=== PATIENT | female | born 1960 | race Two or more races ===

== ENCOUNTER 2016-06-22 17:18 | Emergency (ER) | payer OTHER ==
[2016-06-22 17:40] VITALS: TEMP 98; BMI 30.3
--- NOTE | 2016-06-22 18:13 | EDPRACDOC ---
- General Information Chief Complaint: Chest Pain Stated Complaint: CHEST PAIN Time Seen by Provider: 06/22/16 17:58 Information Source: Patient, Family Mode of Arrival: Car Home Medications: Home Medications Cyanocobalamin (Vitamin B-12) [Cyanocobalamin Injection] 1,000 mcg IJ QMONTH 01/09 Levothyroxine Sodium [Levoxyl] 112 mcg PO DAILY 08/04/12 Acetaminophen Ex Str Tablet [Tylenol Extra Strength *] 1,000 mg PO Q6H PRN 05/30 Albuterol Sulfate 2.5 mg IH Q6H PRN 05/30/13 Albuterol Sulfate [Proair Hfa] 1 - 2 puff INH Q4H PRN 05/30/13 Fluticasone Propionate [Flonase] 1 spray RIMA DAILY 05/30/13 Multivitamin [Multiple Vitamins] 1 tab PO DAILY 05/30/13 Meclizine HCl [Antivert] 25 mg PO Q8H PRN 06/22/16 Mometasone/Formoterol [Dulera 100 Mcg/5 Mcg Inhaler] 13 gm IH BID 06/22/16 Allergies/Adverse Reactions: Allergies Allergy/AdvReac Type Severity Reaction Status Date / Time codeine Allergy Unknown Nausea/Vomi Verified 06/22/16 17:40 ting - History of Present Illness Onset: TODAY HPI: C/o episodes of left side chest tightness with SOB x 1.5 weeks. Had echo done last week = mitral and tricuspid regurge. Stress test pending appt with cardiology. Pt had CP pain today with SOB and pcp sent here here to ED. Pain is random onset, described as burning, and radiates to back and bilateral neck. Denies fever, cough, sore throat, N/V/D, chnages in urine or BM. Med hx = asthma , thyroid (both hyper and hypo). Neg fam hx of cardiac dz. Surgical hx = gregory. Chest Pain Location: Reports: Left Chest Pain Radiation: Reports: Neck (bilat) Symptoms Occur: Reports: Suddenly, At Rest Cardiac Risk Factors: Reports: None Cardiac History of: Reports: Valve Disease (mitral and tricuspid regurge) PE Risk Factors: Reports: None Medications within 24 Hours: Reports: None Prehospital Care: Reports: None Pain Came On: Reports: Suddenly Pain Status: Present Now Pain Description: Reports: Burning Pain Severity: Moderate Pain Worsens With: Reports: Breathing Pain Improves With: Reports: Rest Associated Signs and Symptoms: Reports: SOB ED Past Medical History - History Reviewed Yes Nurses notes reviewed and agree except as marked - Patient Medical History Respiratory History: Reports: Asthma GI/ History: Denies: Urinary Tract Infection Psychological History: Reports: Anxiety. Denies: Depression, Substance Use Disorder Systemic History: Reports: Hypothyroidism (Radiation tx for thyroid several yr ago). Denies: Cancer Surgical History: Reports: Cholecystectomy. Denies: Hysterectomy Date of Last Radiation Treatment: Several yr - Family Medical History Reports: Diabetes (Mother) - Social Medical History Smoking Status: Never smoker Social History: Denies: Substance Use Disorder EDM Review of Systems - Review of Systems ROS Negative Except as Marked: Yes All systems reviewed and were negative except as marked Respiratory: Shortness of Breath Cardiovascular: Chest Pain - Physical Exam Constitutional: No apparent distress, Alert Oriented to: Time, Person, Place Last recorded Vital Signs: Last Vital Signs Temp 98.0 F 06/22/16 17:36 Pulse 72 06/22/16 17:58 Resp 20 06/22/16 17:58 BP 134/76 06/22/16 17:58 Pulse Ox 94 06/22/16 17:58 Oxygen Pulse Oxygen Saturation 94 O2 Device Room Air Oxygen Flow Rate Fraction of Inspired Oxygen ( FIO2) - HEENT Head: Normal Eye Exam: negative: Conjunctival Injection, Scleral Icterus Oropharynx: negative: Drooling TMJ: Normal Nose: No Symptoms Reported Neck: Normal - Respiratory/Cardiovascular Respiratory: Normal - CTA Cardiovascular: Normal - GI Auscultation: Normal Palpation: Normal Tenderness: Non tender - Musculoskeletal Back: Normal Extremities: Normal - Integumentary Skin: Normal - Neurologic Mood Description: Normal Thought: Coherent Perception: Normal ED Chest Pain Exam - Respiratory/Cardiovascular Respiratory: Normal - CTA Cardiovascular/Chest: Normal Radial Pulse: Normal Pedal Pulse: Normal Edema: negative: 1+, 2+, 3+, 4+, 5, 6 Chest Palpation: Normal - Action ASA given in the ED: No - Results 06/22/16 17:52 06/22/16 17:52 - EKG EKG #1 EKG Time: 17:32 -: Yes EKG interpreted by me Rate: bpm: 77 Rhythm: NSR ST: Normal Comments: no prior ekg on file - Diagnostic Imaging Chest Image interpreted by: Radiologist EXAM: PORTABLE CHEST 1 VIEW COMPARISON: PA and lateral chest 03/22/2012. FINDINGS: The lungs are clear. Heart size is normal. There is no pneumothorax or pleural effusion. No focal bony abnormality. IMPRESSION: Negative chest. Electronically Signed By: Donell Bueno M.D. On: 06/22/2016 18:25 Decision Time to Discharge: 18:53 - Departure Disposition: Home Condition: Stable Final Diagnosis: Atypical chest pain Instructions: Chest Pain (ED), Chest Wall Pain Education/Counseling Given To: Patient, Family Member Education/Counseling Given Regarding: Diagnosis, Treatment, Prognosis, Follow Up Referrals: Elizabeth Aburto NP [Primary Care Provider] - One Week Additional Instructions: Follow up with primary care and cardiology. Take 81 mg aspirin daily until you consult with cardiology. Return to ED for any new or worsening symptoms.
[2016-06-22] MEDS ORDERED: ASPIRIN (CHEWABLE) 81 MG TAB PO ONE (18:15)
[2016-06-22 18:17] LABS: AUTOMATED BASOPHIL 0.6 % (0-2); AUTOMATED EOSINOPHIL 3.5 % (0-5); AUTOMATED LYMPH 49.6 % (17-44); AUTOMATED MONOCYTE 5.3 % (3-10); MPV 8.6 fL (7.4-10.4)
[2016-06-22 18:27] LABS: BLOOD UREA NITROGEN 11 MG/DL (7-17); CALCIUM 8.8 MG/DL (8.4-10.2); CALCULATED OSMOLALITY 270 MOs/Kg (270-290); CHLORIDE 104 mEq/L (98-107); GLUCOSE 98 MG/DL (70-99); SODIUM LEVEL 141 mEq/L (137-146); TOTAL PROTEIN 7.7 G/DL (6.3-8.2)
--- NOTE | 2016-06-22 18:28 | DIRPT ---
CLINICAL DATA: Left chest tightness and shortness of breath for 1.5 weeks. Initial encounter. EXAM: PORTABLE CHEST 1 VIEW COMPARISON: PA and lateral chest 03/22/2012. FINDINGS: The lungs are clear. Heart size is normal. There is no pneumothorax or pleural effusion. No focal bony abnormality. IMPRESSION: Negative chest. Electronically Signed By: Donell Bueno M.D. On: 06/22/2016 18:25
[2016-06-22 18:35] LABS: PARTIAL THROMB. TIME 23.9 SEC (22-35)
[2016-06-22 19:08] LABS: LEUKOCYTES/URINE NEG (NEGATIVE); NITRITE/URINE NEG (NEGATIVE); RBC/URINE 0-2 (0-5); URINE OCCULT BLOOD NEG (NEG/TRACE); WBC/URINE 0-2 (0-5)
[2016-06-22 19:13] VITALS: BP 133/68; PULSE 70
== END 2016-06-22 19:07 | disposition home or self-care (01) ==
LOC: ED 17:18
DX: R07.89 Other chest pain (principal); J45.909 Unspecified asthma, uncomplicated; E03.9 Hypothyroidism, unspecified; Z79.899 Other long term (current) drug therapy
CPT/HCPCS: 36415; 71010; 80053; 81001; 84484; 85025; 85610; 85730; 93005; 99283; J3490